=== PATIENT | male | born 1935 | race Caucasian/White ===

== ENCOUNTER 2020-03-13 17:19 | Emergency (ER) | payer MEDICARE, MEDICAID ==
[~2020-03-13] VITALS: Ht 177.8 cm; Wt 73.2 kg
[~2020-03-13 17:19] MED LIST: ALBU8.5H8 IH; CALC1TAB97 PO; DEC1T PO; ESCI10TA61 PO; HYDR25TA4 PO; LORA10TA7 PO; METF-950 PO; POTA8TAB3 PO; PROP10TA10 PO; RISP0.5T65 PO; RISP1TAB98 PO
[2020-03-13 18:12] LABS: BASOPHILS # (AUTO) 0.1 X10'3 (0-0.2); EOSINOPHILS % (AUTO) 0.2 % (0-6); HEMATOCRIT 37.7 % (42.0-52.0); HEMOGLOBIN 13.1 g/dl (14.0-17.9); LYMPHOCYTES # (AUTO) 0.8 X10'3 (1.1-4.8); LYMPHOCYTES % (AUTO) 8.4 % (21-51); MEAN CORPUSCULAR HEMOGLOBIN 32.7 PG (27.0-31.0); MEAN CORPUSCULAR HGB CONC 34.9 g/dL (33.0-36.5); MEAN CORPUSCULAR VOLUME 93.8 FL (78-98); MEAN PLATELET VOLUME 7.7 FL (7.4-10.4); MONOCYTES # (AUTO) 0.2 X10'3 (0-0.9); MONOCYTES % (AUTO) 2.3 % (2-12); NEUTROPHILS # (AUTO) 8.4 X10'3 (1.8-7.7); NEUTROPHILS % (AUTO) 88.1 % (42-75); PLATELET COUNT 266 X10'3 (140-440); RED BLOOD COUNT 4.01 X10'6 (4.70-6.10); RED CELL DISTRIBUTION WIDTH 16.9 % (11.5-14.5); WHITE BLOOD COUNT 9.5 X10'3 (4.5-11.0)
[2020-03-13 18:25] LABS: ALANINE AMINOTRANSFERASE 46 U/L (12-78); ALBUMIN 2.8 G/DL (3.4-5.0); ALBUMIN/GLOBULIN RATIO 0.8 (1.1-1.5); ALKALINE PHOSPHATASE 45 IU/L (46-116); ANION GAP 6 (8-16); ASPARTATE AMINO TRANSFERASE 14 U/L (10-37); BILIRUBIN,TOTAL 0.6 MG/DL (0.1-1.0); BLOOD UREA NITROGEN 22 MG/DL (7-18); BUN/CREATININE RATIO 20.6 (5.4-32.0); CALCIUM 9.3 MG/DL (8.5-10.1); CHLORIDE 98 MMOL/L (99-107); CREATININE 1.07 MG/DL (0.60-1.10); GLUCOSE 207 MG/DL (70-104); POTASSIUM 4.1 MMOL/L (3.5-5.1); SODIUM 134 MMOL/L (135-145); TOTAL CARBON DIOXIDE 30.4 MMOL/L (24-32); TOTAL PROTEIN 6.3 G/DL (6.4-8.2); eGFR 66 ML/MIN
--- NOTE | 2020-03-13 19:19 | NUR ---
TEOFILO FROM [employer] CALLED FOR UPDATE,
[2020-03-13 19:37] LABS: CLARITY,URINE CLEAR (Clear); COLOR,URINE YELLOW (Yellow); GLUCOSE, URINE NEGATIVE (Neg); KETONES,URINE NEGATIVE (Neg); LEUKOCYTE ESTERASE ,URINE TRACE (Neg); NITRITES, URINE NEGATIVE (Neg); OCCULT BLOOD,URINE NEGATIVE (Neg); PROTEIN,URINE NEGATIVE (Neg)
[2020-03-13 19:44] VITALS: BP 118/67
[2020-03-13 19:47] LABS: UA COLLECTION TYPE STRAIGHT CATH
[2020-03-13 19:48] LABS: BACTERIA,URINE NONE SEEN /HPF (Neg); RBC,URINE NONE SEEN /HPF (0-2); SQUAMOUS EPITHELIAL CELL,UR FEW /LPF (FEW); WBC,URINE 0-4 /HPF (0-4)
--- NOTE | 2020-03-13 20:26 | NUR ---
CONTACTED PT CAREGIVER WHO WILL COME AND PICK HIM UP.
== END 2020-03-14 01:09 | disposition home or self-care (01) ==
LOC: ER 17:19
DX: U07.1 COVID-19 (principal); R55 Syncope and collapse; I10 Essential (primary) hypertension; E11.9 Type 2 diabetes mellitus without complications; R62.50 Unspecified lack of expected normal physiological development in childhood
CPT/HCPCS: 36415; 71045; 80053; 81001; 83735; 83880; 84484; 85025; 87088; 93005; 99285

== ENCOUNTER 2020-05-15 18:53 | Emergency (ER) | payer MEDICARE, MEDICAID ==
[~2020-05-15] VITALS: Ht 172.7 cm; Wt 84.1 kg
[~2020-05-15 18:53] MED LIST changes: -DEC1T PO; -ESCI10TA61 PO; +ESCI10TA66 PO
[2020-05-15 19:25] LABS: MEAN CORPUSCULAR HEMOGLOBIN 33.3 PG (27.0-31.0)
[2020-05-15 19:26] LABS: BASOPHILS % (AUTO) 0.2 % (0-1); EOSINOPHILS # (AUTO) 0.3 X10'3 (0-0.9); EOSINOPHILS % (AUTO) 4.3 % (0-6); HEMATOCRIT 34.2 % (42.0-52.0); HEMOGLOBIN 11.9 g/dl (14.0-17.9); LYMPHOCYTES # (AUTO) 2.1 X10'3 (1.1-4.8); MEAN CORPUSCULAR HGB CONC 34.9 g/dL (33.0-36.5); MEAN CORPUSCULAR VOLUME 95.5 FL (78-98); MEAN PLATELET VOLUME 7.8 FL (7.4-10.4); MONOCYTES # (AUTO) 0.8 X10'3 (0-0.9); MONOCYTES % (AUTO) 10.9 % (2-12); NEUTROPHILS # (AUTO) 3.9 X10'3 (1.8-7.7); NEUTROPHILS % (AUTO) 54.6 % (42-75); PLATELET COUNT 197 X10'3 (140-440); RED BLOOD COUNT 3.58 X10'6 (4.70-6.10); RED CELL DISTRIBUTION WIDTH 17.2 % (11.5-14.5); WHITE BLOOD COUNT 7.1 X10'3 (4.5-11.0)
[2020-05-15 19:34] LABS: ALANINE AMINOTRANSFERASE 27 U/L (12-78); ALBUMIN 3.5 G/DL (3.4-5.0); ALBUMIN/GLOBULIN RATIO 1.2 (1.1-1.5); ALKALINE PHOSPHATASE 56 IU/L (46-116); ANION GAP 7 (8-16); ASPARTATE AMINO TRANSFERASE 18 U/L (10-37); BILIRUBIN,TOTAL 0.6 MG/DL (0.1-1.0); BLOOD UREA NITROGEN 18 MG/DL (7-18); BUN/CREATININE RATIO 19.8 (5.4-32.0); CALCIUM 9.1 MG/DL (8.5-10.1); CHLORIDE 100 MMOL/L (99-107); CREATININE 0.91 MG/DL (0.60-1.10); GLUCOSE 141 MG/DL (70-104); POTASSIUM 3.6 MMOL/L (3.5-5.1); SODIUM 137 MMOL/L (135-145); TOTAL CARBON DIOXIDE 30.5 MMOL/L (24-32); TOTAL PROTEIN 6.5 G/DL (6.4-8.2); eGFR 80 ML/MIN
[2020-05-15 19:39] LABS: TROPONIN I < 0.04 NG/ML (0.0-0.05)
--- NOTE | 2020-05-15 20:38 | NUR ---
gema lee [facility] [phone] cell call for transportation
[2020-05-15 20:55] LABS: CLARITY,URINE CLEAR (Clear); COLOR,URINE YELLOW (Yellow); GLUCOSE, URINE NEGATIVE (Neg); KETONES,URINE NEGATIVE (Neg); LEUKOCYTE ESTERASE ,URINE NEGATIVE (Neg); NITRITES, URINE NEGATIVE (Neg); OCCULT BLOOD,URINE NEGATIVE (Neg); PROTEIN,URINE NEGATIVE (Neg); UA COLLECTION TYPE STRAIGHT CATH; UROBILINOGEN,URINE 0.2 E.U/dL (0.2-1.0)
[2020-05-15 21:07] LABS: URINE AMPHETAMINE SCREEN NEGATIVE (Neg); URINE BARBITUATE SCREEN NEGATIVE (Neg); URINE BENZODIAZEPINES SCREEN POSITIVE (Neg); URINE CANNABINOID SCREEN NEGATIVE (Neg); URINE COCAINE SCREEN NEGATIVE (Neg); URINE METHADONE SCREEN NEGATIVE (Neg); URINE OPIATE SCREEN NEGATIVE (Neg); URINE PHENCYCLIDINE SCREEN NEGATIVE (Neg)
[2020-05-15 21:20] VITALS: BP 106/70
--- NOTE | 2020-05-15 21:38 | NUR ---
CALLED FOR TRANSPORTATION
--- NOTE | 2020-05-15 22:39 | NUR ---
called and left another message
== END 2020-05-15 23:11 | disposition home or self-care (01) ==
LOC: ER 18:53
DX: R53.81 Other malaise (principal); G31.9 Degenerative disease of nervous system, unspecified; R53.83 Other fatigue; I10 Essential (primary) hypertension; E11.9 Type 2 diabetes mellitus without complications; Z79.899 Other long term (current) drug therapy; F84.0 Autistic disorder; D64.9 Anemia, unspecified
CPT/HCPCS: 70450; 71045; 80053; 80305; 81003; 82140; 84484; 85025; 93005; 99285

== ENCOUNTER 2022-11-06 11:00 | Emergency (ER) | payer MEDICARE, MEDICAID ==
[~2022-11-06] VITALS: Ht 172.7 cm; Wt 81.8 kg
[~2022-11-06 11:00] MED LIST changes: +ALBU8.5H17 IH; -ALBU8.5H8 IH; +CALC-952 PO; -CALC1TAB97 PO; +ESCI-8 PO; -ESCI10TA66 PO; +METF-1203 PO; -METF-950 PO; -POTA8TAB3 PO; +POTA8TAB69 PO
[2022-11-06 11:11] VITALS: BP 110/64; PULSE 109; RESP 18; O2SAT 93
[2022-11-06] MEDS ORDERED: normal saline 1000ML IV soln IVB ONE (11:55)
[2022-11-06 12:32] LABS: BASOPHILS % (AUTO) 0.7 % (0-1); EOSINOPHILS # (AUTO) 0.2 X10'3 (0-0.9); EOSINOPHILS % (AUTO) 3.3 % (0-6); HEMATOCRIT 34.8 % (42.0-52.0); LYMPHOCYTES # (AUTO) 1.1 X10'3 (1.1-4.8); LYMPHOCYTES % (AUTO) 17.2 % (21-51); MEAN CORPUSCULAR HEMOGLOBIN 33.7 PG (27.0-31.0); MEAN CORPUSCULAR HGB CONC 34.5 g/dL (33.0-36.5); MEAN CORPUSCULAR VOLUME 97.5 FL (78-98); MEAN PLATELET VOLUME 8.5 FL (7.4-10.4); MONOCYTES # (AUTO) 0.5 X10'3 (0-0.9); MONOCYTES % (AUTO) 7.8 % (2-12); NEUTROPHILS # (AUTO) 4.4 X10'3 (1.8-7.7); PLATELET COUNT 156 X10'3 (140-440); RED BLOOD COUNT 3.58 X10'6 (4.70-6.10); RED CELL DISTRIBUTION WIDTH 16.9 % (11.5-14.5); WHITE BLOOD COUNT 6.2 X10'3 (4.5-11.0)
[2022-11-06 12:37] LABS: ALANINE AMINOTRANSFERASE 16 U/L (12-78); ALBUMIN 3.5 G/DL (3.4-5.0); ALBUMIN/GLOBULIN RATIO 1.3 (1.1-1.5); ALKALINE PHOSPHATASE 79 IU/L (46-116); ANION GAP 10 (8-16); ASPARTATE AMINO TRANSFERASE 18 U/L (10-37); BILIRUBIN,TOTAL 0.4 MG/DL (0.1-1.0); BLOOD UREA NITROGEN 14 MG/DL (7-18); BUN/CREATININE RATIO 13.7 (10.0-20.0); CALCIUM 8.9 MG/DL (8.5-10.1); CHLORIDE 103 MMOL/L (99-107); CREATININE 1.02 MG/DL (0.60-1.10); GLUCOSE 144 MG/DL (70-104); MAGNESIUM 2.1 MG/DL (1.5-2.4); SODIUM 137 MMOL/L (135-145); TOTAL CARBON DIOXIDE 24.4 MMOL/L (24-32); TOTAL PROTEIN 6.3 G/DL (6.4-8.2); eGFR 69 ML/MIN
[2022-11-06 12:38] LABS: POTASSIUM 4.2 MMOL/L (3.5-5.1)
[2022-11-06] MEDS ORDERED: CEPH-585 PO (12:55)
[2022-11-06] MEDS ORDERED: CefTRIAXone/D5W-Rocephin 1gm 50 ML IV ONE (12:55)
--- NOTE | 2022-11-06 13:04 | NUR ---
Per Dr. Pérez, anupam not to collect the urine sample as we would just treat patient empirically with IV Rocephin
== END 2022-11-06 13:47 | disposition home health service (06) ==
LOC: ER 11:01
DX: R53.1 Weakness (principal); I10 Essential (primary) hypertension; E11.9 Type 2 diabetes mellitus without complications; Z79.899 Other long term (current) drug therapy; Z79.2 Long term (current) use of antibiotics
CPT/HCPCS: 36415; 70450; 71045; 80053; 83735; 85025; 85610; 93005; 96365; 99285; J0696; J7030

== ENCOUNTER 2024-12-16 16:25 | Inpatient (IN) | payer MEDICARE, MEDICAID ==
[~2024-12-16] VITALS: Ht 182.9 cm; Wt 70.7 kg
[~2024-12-16 16:25] MED LIST changes: +RISP-31 PO; -RISP0.5T65 PO; +RISP0.5T80 PO; -RISP1TAB98 PO
--- NOTE | 2024-12-16 17:28 | Physician Documentation ---
History of Present Illness General Chief Complaint: Fever Stated Complaint: DIARRHEA/FEVER Time Seen by MD: 17:10 Primary Medical Doctor: MOISES BANDA History of Present Illness Initial Comments The patient is an 89-year-old man who resides at [facility] Living with a history of dementia and type 2 diabetes. Over the past two weeks he has generally deteriorated (less active) and beginning last night around midnight developed diarrhea. When they took his temperature prior to coming here it was 100. Medication Reconciliation Allergies: Coded Allergies: No Known Allergies (Unverified , 03/04/20) Scheduled Calcium Carbonate/Vitamin D3 (Calcium 600 + Vit D3 400 Tab), 1 TAB PO BID, (Reported) Escitalopram Oxalate (Escitalopram Oxalate), 1 TAB PO DAILY, (Reported) Hydrochlorothiazide (Hydrochlorothiazide), 1 TAB PO DAILY, (Reported) Loratadine (Loratadine), 1 TAB PO DAILY, (Reported) Metformin HCl (Metformin HCl), 1 TAB PO BIDBD, (Reported) Potassium Chloride (Klor-Con 8), 1 TAB PO DAILY, (Reported) Propranolol Hcl* (Inderal*), 1 TAB PO BID, (Reported) Risperidone (Risperidone), 1 TAB PO BID, (Reported) Risperidone (Risperidone), 1 TAB PO HS, (Reported) Scheduled PRN Albuterol Sulfate (Proair Hfa), 2 PUFF IH Q4H PRN for SOB or wheezing Past Medical History Past Medical History: Dementia, Hypertension, Diabetes, Schizophrenia Past Surgical History: noncontributory Drug Use: none Lives In: Assisted Care Occupation: disabled Review of Systems ROS Unable to obtain due to dementia. Physical Exam Physical Exam Vital Signs: Temperature: 101.7, Source: Axillary, Heart Rate: 105, Respiratory Rate: 18, BP: 126/56, Pulse Oximetry: 98, Weight: 70.700 Oxygen Flow Rate: 0 Physical Exam Physical Exam Vitals and nursing note reviewed. Constitutional: General: Patient is awake, somnolent but arousable oriented to person in no acute distress. Speech is clear and lucid. Appearance: Appears dehydrated. HENT: Head: Normocephalic and atraumatic. Mouth/Throat: Mouth: Mucous membranes are moist. Pharynx: Oropharynx is clear. Eyes: General: No scleral icterus. Extraocular Movements: Extraocular movements intact. Pupils: Pupils are equal, round, and reactive to light. Neck: Supple, no Kernig or Brudzinski sign. Cardiovascular: Rate and Rhythm: Normal rate and regular rhythm. Heart sounds: No murmur heard. Pulmonary: Effort: No respiratory distress. Breath sounds: No wheezing, rhonchi or rales. Abdominal: General: There is no distension. Palpations: There is no fluid wave, hepatomegaly or mass. Tenderness: There is no abdominal tenderness. There is no guarding. Musculoskeletal: General: No swelling or deformity. Progress Results/Orders Results/Orders Orders - PAPA MCWILLIAMS MD Hospitalist (12/16/24 18:37) Fill Out Med Reconciliation (12/16/24 18:37) Medications Received in ER Medications (Trade) Dose Ordered Sig/Sal Route PRN Reason Start Time Stop Time Status Last Admin Dose Admin (Tylenol tablet) 650 mg ONCE ONCE PO 12/16/24 16:50 12/16/24 16:51 DC 12/16/24 17:20 650 MG Sodium Chloride 1,000 ml @ 1,000 mls/hr ONCE ONCE IV 12/16/24 17:30 12/16/24 18:29 DC 12/16/24 19:36 1,000 MLS/HR Vital Signs 12/16/24 12/16/24 12/16/24 12/16/24 16:46 16:53 17:00 17:30 Temp 101.7 Pulse 105 106 98 Resp 18 16 B/P (MAP) 126/56 126/56 (79) 127/89 (102) Pulse Ox 98 97 96 O2 Flow Rate 0 0 0 12/16/24 19:07 Temp 99.9 Pulse 91 Resp 16 B/P (MAP) 114/51 (72) Pulse Ox 96 O2 Flow Rate 0 Laboratory Tests Test 12/16/24 17:45 12/16/24 17:58 White Blood Count 9.1 Red Blood Count 3.42 L Hemoglobin 11.4 L Hematocrit 32.4 L Mean Corpuscular Volume 95.0 Mean Corpuscular Hemoglobin 33.5 H Mean Corpuscular Hemoglobin Concent 35.3 Red Cell Distribution Width 18.5 H Platelet Count 218 Mean Platelet Volume 8.2 Neutrophils (%) (Auto) 83.0 H Lymphocytes (%) (Auto) 8.7 L Monocytes (%) (Auto) 7.6 Eosinophils (%) (Auto) 0.1 Basophils (%) (Auto) 0.6 Neutrophils # (Auto) 7.6 Lymphocytes # (Auto) 0.8 L Monocytes # (Auto) 0.7 Eosinophils # (Auto) 0.0 Basophils # (Auto) 0.1 CBC Comment Prothrombin Time 11.3 INR International Normalized Ratio 1.1 Coagulation Comments Sodium Level 137 Potassium Level 4.4 Chloride Level 101 Carbon Dioxide Level 27.5 Anion Gap 9 Blood Urea Nitrogen 20 H Creatinine 1.00 Estimated GFR/1.73 m2 71 BUN/Creatinine Ratio 20.0 Glucose Level 129 H Lactic Acid Level 1.1 Calcium Level 9.3 Magnesium Level 1.9 Total Bilirubin 1.2 H Aspartate Amino Transf (AST/SGOT) 20 Alanine Aminotransferase (ALT/SGPT) 29 Alkaline Phosphatase 111 Troponin I High Sensitivity 10 Total Protein 6.7 Albumin 3.7 Globulin 3.0 Albumin/Globulin Ratio 1.2 Chemistry Comments SARS-CoV-2 Antigen (Rapid) Positive A Medical Decision Making Findings Patient presents to the emergency room with fever and generalized weakness as per HPI. Differentials include but are not limited to viral syndrome, urinary tract infection, dehydration, acute kidney injury, electrolyte disturbances, metabolic encephalopathy therefore emergent labs ordered. Labs were reassuring however patient is COVID positive. Patient is not drinking any water in his generally declining health in the fact that has patient has multiple comorbid conditions and is immunocompromised a feel he would benefit from admission. IV fluids has been initiated. Departure Disposition: ADMITTED INPATIENT Admitted to Inpatient Unit: yes, to hospitalist Impression: Primary Impression: Pneumonia due to COVID-19 virus Condition: Guarded Referrals: NO PRIMARY CARE PROVIDER (PCP) Signature Scribe Signature: No scribe Attestation: The note accurately reflects work and decisions made by me.Papa Mcwilliams MD 12/16/24 18:36 MAMI CHAMBERS MD Dec 16, 2024 17:28 PAPA MCWILLIAMS MD Dec 16, 2024 18:36
--- NOTE | 2024-12-16 17:51 | ELECTROCARDIOGRAPH REPORT ---
[facility] Test Date: 2024-12-16 Test Time: 17:48:50 Pat Name: NAM BAEZ Department: [facility]-ER Patient ID: [facility]-[id number] Room: Gender: M Parking Worker: : 1935 Requested By: MAMI CHAMBERS Order Number: [id number] Reading MD: Measurements Intervals [place] Rate: 103 P: 61 ME: 186 QRS: -6 QRSD: 129 T: 110 QT: 370 QTc: 485 Interpretive Statements Sinus tachycardia Left bundle branch block Baseline wander in lead(s) V2 Please click the below link to view image of tracing.
[2024-12-16 18:06] LABS: MEAN PLATELET VOLUME 8.2 FL (7.4-10.4); RED CELL DISTRIBUTION WIDTH 18.5 % (11.5-14.5)
[2024-12-16 18:09] LABS: INR 1.1 INR
[2024-12-16 18:15] LABS: CREATININE 1.00 MG/DL (0.60-1.10); TOTAL CARBON DIOXIDE 27.5 MMOL/L (24-32); eCRCL 52 ML/MIN; eGFR 71 ML/MIN
--- NOTE | 2024-12-16 18:29 | RADIOLOGY REPORT ---
EXAM: DI CHEST,SINGLE VIEW HISTORY: Fever TECHNIQUE: 1 view of the chest COMPARISON: DI CHEST,SINGLE VIEW on DOS: 11/06/22 FINDINGS/IMPRESSION: LUNGS: No pleural effusion, consolidation, or pneumothorax MEDIASTINUM: Unremarkable BONES: No acute osseous abnormality OTHER: None
[2024-12-16] MEDS: normal saline 1000ml 1,000 ML IV ONE (19:36)
[2024-12-16] MEDS ORDERED: magnesium sulf-water 4G/100mL 100 ML IV PRN (19:40)
[2024-12-16] MEDS ORDERED: HYDROmorphone/PF 0.2 MG/ML SYRINGE IV PRN (19:40)
[2024-12-16] MEDS ORDERED: potassium Cl 40MEQ/1/2NS 520ml 520 ML IV PRN (19:40)
[2024-12-16] MEDS ORDERED: mag hydrox/Alum hydrox/simeth 30ml oral suspension PO PRN (19:40)
[2024-12-16] MEDS ORDERED: potassium Cl 20 mEq SR tablet PO PRN ×2 (19:40)
[2024-12-16] MEDS ORDERED: magnesium hydroxide 30ml (MOM) UD suspension PO PRN (19:40)
[2024-12-16] MEDS ORDERED: magnesium Cl slow-release 64mg tablet PO PRN (19:40)
[2024-12-16] MEDS ORDERED: ondansetron/PF 4mg/2ml inj IV PRN (19:40)
[2024-12-16] MEDS ORDERED: ondansetron 4mg rapidly disintigrating tab PO PRN (19:40)
[2024-12-16] MEDS ORDERED: magnesium sulf-water 2g/50mL 50 ML IV PRN (19:40)
[2024-12-16] MEDS: docusate sod 100mg capsule PO SCH (20:00)
[2024-12-16] MEDS: K and/or MAG REPLACEMENT MC SCH (20:00)
[2024-12-16] MEDS: heparin, porcine 5000 units/ml vial SQ SCH (20:00)
[2024-12-16] MEDS: normal saline 1000ml 1,000 ML IV SCH (20:20)
--- NOTE | 2024-12-16 20:47 | HISTORY AND PHYSICAL-Residence ---
History & Physical Providers to CC Resident Creating Document: ELPIDIO JUAREZ, RES ~ History of Present Illness Primary Medical Doctor: MOISES BANDA Reason for Admit\Complaint: fever History of Present Illness 89 years old male who resides at [facility] Living with history of dementia, T2 Diabetes mellius, Basal cell carcinoma of nose, Depression comes to ED with fever and diarrhea.Patient is a overall a poor historian he accompanied by her caregiver according to her Patient presented with continuous fever for the past 6 hours and recorded temp was 100, she did reported having intermittent waterry diarrhea for 12 hours not associated with no recent travel, and antibiotic use and he also presents with intermittent dry cough without sputum Patient is overall a poor historian and he denies nay chest pain, nausea, vomiting , dysuria, blood in the stools, and any sick contacts Patient recently undergone radiation therapy on october for his Basal cell carcinoma of nose Allergies: Coded Allergies: No Known Allergies (Unverified , 03/04/20) Home Medications Home Medications Active Proair Hfa (Albuterol Sulfate) 1 Puff Inh 2 Puff IH Q4H PRN Reported Klor-Con 8 (Potassium Chloride) 8 Meq Tablet.er 1 Tab PO DAILY 30 Days Calcium 600 + Vit D3 400 Tab (Calcium Carbonate/Vitamin D3) 1 Each Tablet 1 Tab PO BID Escitalopram Oxalate 10 Mg Tablet 1 Tab PO DAILY Loratadine 10 Mg Tablet 1 Tab PO DAILY Metformin HCl 500 Mg Tablet 1 Tab PO BIDBD Hydrochlorothiazide 25 Mg Tablet 1 Tab PO DAILY Risperidone 0.5 Mg Tablet 1 Tab PO HS Risperidone 1 Mg Tablet 1 Tab PO BID BID 08,14 Inderal* (Propranolol HCl) 10 Mg Tablet 1 Tab PO BID Past Medical History Past Medical History Diabetes mellius Basal cell carcinoma of skin Depression Schizophrenia Dementia Past Surgical History Surgical History Comment No relevant surgical history Past Social History Social History Comment Patient lives [facility] He ambulate using wheel chair His PCP : He is non alcohol drinker, non smoker, Not a drug user Drug Use: None Lives In: Assisted Care Occupation: disabled ROS Unable to obtain: dementia Exam Vitals: Vital Signs Date Time Temp Pulse Resp B/P (MAP) Pulse Ox O2 Delivery O2 Flow Rate FiO2 12/16/24 19:07 99.9 91 16 114/51 (72) 96 0 General: patient is ill looking, drowsy, dehydrated not answering questions HEENT: Normocephalic and atraumatic. Pupils equal round reactive to light and accommodation. Extraocular movements intact. Oral and nasal mucosa are dry . No visible head injuries, watering of eyes present Bilaterally Neck: Trachea is in midline. No masses or JVD Chest: Bilateral normal breath sounds. No crackles, rhonchi or wheezes Cardiovascular: Regular rate and regular rhythm. S1-S2 normal. No rubs or murmurs Abdomen: No tenderness present. Soft and nondistended. Normoactive bowel sounds Extremities: No cyanosis, clubbing or edema. Central Nervous System: normal tone and bulk Skin: Warm and dry Diagnostic Data Last Recorded Lab Results: 12/16/24 1745 12/16/24 1745 Diagnostic Data: Laboratory Tests Test 12/16/24 17:45 Prothrombin Time 11.3 SECONDS (9.0-12.0) INR International Normalized Ratio 1.1 INR Coagulation Comments Counseling Services Smoking & Tobacco Cessation: N/A Advance Care Planning Advanced Care planning: N/A Additional Plan 89 years old with history of dementia, Basal cell carcinoma S/P radiation therapy, diabetes mellitus, depression and schizophrenia he is currently evaluated for fever and diarrhea Fever due to COVID-19 patient lives in a [facility] presented with Fever and intermittent cough Temperature: 99.9 , pulse: 98, blood pressure: 114/51, pulse oxygen: 96 on room air H/H-11.4/32.4, WBC-9.1, platelet-218 Na: 137, K:4.4, BUN: 30, Cr: 1 CRP: 2.61, ProCal: <0.05 Serology SARS-CoV-2 Ag - Positive Chest X ray : : No pleural effusion, consolidation, or pneumothorax , MEDIASTINUM is Unremarkable Plan: Given One dose of 1000 ml NS Bolus and tylenol 650 mg in ED Started IV NS 75ml/hr Started Paxlovid Po BId Given One dose of Solu-medrol 125 mg IV once Start Oxygen if SpO2 drops below 90 Tylenol PRN for fever Follow up with U/A, ESR, Blood cultures Patient is placed on Isolation precautions with continous monitoring of vitals, oxygen Diarrhea patient healthcare receptionist reported having 4-5 episodes of watery diarrhea and he is dehydrated but no active diarrhea given one dose 1000 NS Bolous In ED started 75mg/hr IV NS Basal cell carcinoma of skin Patient has a history of basal cell carcinoma on the nose and undergone radiotheraphy on october 2024 according to his healthcare receptionist plan: Follow up with PCP Diabetes Mellitus type 2: patient has a long history diabetes and on Metformin 500mg His Blood glucose - 129, HbA1c: 5.2 Pending med rec Depression patient uses Escitalopram for depression according to his healthcare receptionist Plan: Start home med once med rec is completed Schizophrenia Patient has a history of hallucinations reported by his healthcare receptionist and he is on Risperidone Plan: start home med once med rec is completed DVT prophylaxis: Heparin Analgesia/sedation: Morphine/[place] p.r.n. Line/tube: PIV GI prophylaxis: Protonix PT: Ordered. Prognosis: Guarded Disposition : Patient will be continously monitored for vitals, Oxygen saturation and clinical status with symptomatic management elpidio juarez [email or web address] Date of Service: Dec 16, 2024 Billing Provider: SHILPA JACOME MD Common Visit Codes: [id number] INP/OBS CARE (HIGH) Assessment/Plan Assessment Evaluated the patient with the help of residents. Discussed the case with them. Reviewed the notes by the resident. Agree with his assessments and plans. I also reviewed the patient's records including labs radiology and notes from other providers. No additional points at this time. ELPIDIO JUAREZ, RES Dec 16, 2024 20:47 SHILPA JACOME MD Dec 17, 2024 01:35
[2024-12-16 22:05] VITALS: BP 104/60; PULSE 85; RESP 15; TEMP 100.5; O2SAT 97
[2024-12-16 23:00] VITALS: RESP 14; O2SAT 95
[2024-12-16] MEDS: NIRMATRELVIR/RITONAVIR 300/100mg - 1 EACH TAB.DS.PK PO SCH (23:08)
[2024-12-17 02:00] VITALS: BP 123/61; PULSE 78; RESP 20; TEMP 99.3; O2SAT 95
[2024-12-17 06:00] VITALS: BP 126/64; PULSE 75; RESP 22; TEMP 97.5; O2SAT 92
[2024-12-17 11:00] VITALS: BP 122/68; PULSE 57; RESP 15; TEMP 98; O2SAT 98
[2024-12-17 11:28] LABS: MEAN PLATELET VOLUME 8.5 FL (7.4-10.4); RED CELL DISTRIBUTION WIDTH 18.5 % (11.5-14.5)
[2024-12-17 11:46] LABS: CREATININE 0.82 MG/DL (0.60-1.10); TOTAL CARBON DIOXIDE 23.7 MMOL/L (24-32); eCRCL 63 ML/MIN; eGFR 89 ML/MIN
[2024-12-17 15:00] VITALS: BP 123/59; PULSE 60; RESP 14; TEMP 98.1; O2SAT 97
--- NOTE | 2024-12-17 19:47 | PROGRESS NOTE ---
Daily Progress Note Providers to CC ~ Antibiotic Timeout Antibiotic Ordered?: No Subjective Was seen in COVID isolation room today patient is unable to give me any history, signs of moderate to severe dementia present. Objective Vital Signs Date Time Temp Pulse Resp B/P (MAP) Pulse Ox O2 Delivery O2 Flow Rate FiO2 12/17/24 15:00 98.1 60 14 123/59 (80) 97 Room Air 12/16/24 19:07 0 Result Diagram: 12/17/24 1053 12/17/24 1053 General-patient not in any acute distress, awake chronically ill-appearing HEENT-atraumatic normocephalic, neck supple without elevated JVD, no thyromegaly or carotid bruit. No lymphadenopathy bilaterally. Eyes-no icterus or pallor seen in eyes Chest-decreased breath sounds to auscultation bilaterally over lung base. breathing nonlabored no tachypnea, no wheezing, no crepitation, no crackles. Heart-S1-S2 normal, regular heart rate no murmur Abdomen bowel sounds positive on auscultation, soft nondistended nontender no guarding, no rigidity Skin no active skin rash Neurology-patient has moderate dementia unable to cooperate or follow any verbal commands Extremity- no pedal edema Coagulation Studies Laboratory Tests Test 12/16/24 17:45 Prothrombin Time 11.3 SECONDS (9.0-12.0) INR International Normalized Ratio 1.1 INR Coagulation Comments Problem\Assessment\Plan 89 years old with history of dementia, Basal cell carcinoma S/P radiation therapy, diabetes mellitus, depression and schizophrenia he is currently evaluated for fever and diarrhea Fever due to COVID-19 patient lives in a [facility] facility presented with Fever and intermittent cough Temperature: 99.9 , pulse: 98, blood pressure: 114/51, pulse oxygen: 96 on room air H/H-11.4/32.4, WBC-9.1, platelet-218 Na: 137, K:4.4, BUN: 30, Cr: 1 CRP: 2.61, ProCal: <0.05 Serology SARS-CoV-2 Ag - Positive Chest X ray : : No pleural effusion, consolidation, or pneumothorax , MEDIASTINUM is Unremarkable Plan: Given One dose of 1000 ml NS Bolus and tylenol 650 mg in ED Started IV NS 75ml/hr Started Paxlovid Po BId Given One dose of Solu-medrol 125 mg IV once Start Oxygen if SpO2 drops below 90 Tylenol PRN for fever Follow up with U/A, ESR, Blood cultures Patient is placed on Isolation precautions with continous monitoring of vitals, oxygen Diarrhea patient child daycare worker reported having 4-5 episodes of watery diarrhea and he is dehydrated but no active diarrhea given one dose 1000 NS Bolous In ED started 75mg/hr IV NS Basal cell carcinoma of skin Patient has a history of basal cell carcinoma on the nose and undergone radiotheraphy on october 2024 according to his child daycare worker plan: Follow up with PCP Diabetes Mellitus type 2: patient has a long history diabetes and on Metformin 500mg His Blood glucose - 129, HbA1c: 5.2 On hypo and hyperglycemic protocol for diabetes Depression patient uses Escitalopram for depression according to his child daycare worker Plan: will Start home med once med rec is completed Schizophrenia Patient has a history of hallucinations reported by his child daycare worker and he is on Risperidone Home medication reconciliation tried but only able to review the medication unable to continue the medication in med rec. Pharmacy and nursing staff needs to work on medication reconciliation. DVT prophylaxis: Heparin Analgesia/sedation: Morphine/[place] p.r.n. Line/tube: PIV GI prophylaxis: Protonix PT: Ordered. Patient's current condition is guarded we will continue to follow patient in a.m. Date of Service: Dec 17, 2024 Billing Provider: GARY BROWNING MD Common Visit Codes: [id number] INP/OBS CARE(HIGH) GARY BROWNING MD Dec 17, 2024 19:47
[2024-12-17 20:00] VITALS: RESP 17; O2SAT 96
[2024-12-17 23:33] VITALS: BP 134/69; PULSE 60; TEMP 97.3; O2SAT 97
[2024-12-18] VITALS: RESP 17; O2SAT 96
[2024-12-18 04:37] LABS: MEAN PLATELET VOLUME 8.8 FL (7.4-10.4); RED CELL DISTRIBUTION WIDTH 18.7 % (11.5-14.5)
[2024-12-18 04:54] LABS: CREATININE 0.65 MG/DL (0.60-1.10); TOTAL CARBON DIOXIDE 27.6 MMOL/L (24-32); eCRCL 80 ML/MIN; eGFR > 90 ML/MIN
[2024-12-18 06:00] VITALS: BP 138/76; PULSE 88; RESP 14; TEMP 98.3; O2SAT 93
[2024-12-18 10:00] VITALS: BP 125/62; PULSE 65; RESP 16; TEMP 98.1; O2SAT 95
[2024-12-18] MEDS ORDERED: ALBU90AE INH (10:58)
[2024-12-18] MEDS: lactose-reduced food (Ensure Enlive) - 237ml bottle PO SCH ×2 (18:01→19:50)
[2024-12-18 20:00] VITALS: RESP 20; O2SAT 96
--- NOTE | 2024-12-18 20:13 | PROGRESS NOTE ---
Daily Progress Note Providers to CC ~ Antibiotic Timeout Antibiotic Ordered?: No Subjective Patient was seen in COVID isolation room he looks so much better as compared to yesterday cooperated very well responded well to verbal commands. As per patient he has a feeder does not walk. Nursing staff feels that patient's appetite is poor ensure added today and fall and aspiration precautions to continue Objective Vital Signs Date Time Temp Pulse Resp B/P (MAP) Pulse Ox O2 Delivery O2 Flow Rate FiO2 12/18/24 10:00 98.1 65 16 125/62 (83) 95 Room Air 12/18/24 00:00 0.0 Result Diagram: 12/18/2441612/18/24416 General-patient not in any acute distress, awake chronically ill-appearing HEENT-atraumatic normocephalic, neck supple without elevated JVD, no thyromegaly or carotid bruit. No lymphadenopathy bilaterally. Eyes-no icterus or pallor seen in eyes Chest-clear breath sounds to auscultation bilaterally , breathing nonlabored no tachypnea, no wheezing, no crepitation, no crackles. Heart-S1-S2 normal, regular heart rate no murmur Abdomen bowel sounds positive on auscultation, soft nondistended nontender no guarding, no rigidity Skin no active skin rash Neurology-patient has moderate dementia , today able to cooperate and follow verbal commands Extremity- no pedal edema , able to move all four extremity Coagulation Studies Laboratory Tests Test 12/16/24 17:45 Prothrombin Time 11.3 SECONDS (9.0-12.0) INR International Normalized Ratio 1.1 INR Coagulation Comments Problem\Assessment\Plan 89 years old with history of dementia, Basal cell carcinoma S/P radiation therapy, diabetes mellitus, depression and schizophrenia he is currently evaluated for fever and diarrhea Fever due to COVID-19 patient lives in a [facility] presented with Fever and intermittent cough Temperature: 99.9 , pulse: 98, blood pressure: 114/51, pulse oxygen: 96 on room air H/H-11.4/32.4, WBC-9.1, platelet-218 Na: 137, K:4.4, BUN: 30, Cr: 1 CRP: 2.61, ProCal: <0.05 Serology SARS-CoV-2 Ag - Positive Chest X ray : : No pleural effusion, consolidation, or pneumothorax , MEDIASTINUM is Unremarkable Plan: Given One dose of 1000 ml NS Bolus and tylenol 650 mg in ED on IV NS 75ml/hr on Paxlovid Po BId, we will monitor renal function Given One dose of Solu-medrol 125 mg IV once Start Oxygen if SpO2 drops below 90 Tylenol PRN for fever Follow up with U/A, ESR, Blood cultures Patient is placed on Isolation precautions with continous monitoring of vitals, oxygen Diarrhea patient patient care coordinator reported having 4-5 episodes of watery diarrhea and he is dehydrated but no active diarrhea given one dose 1000 NS Bolous In ED started 75mg/hr IV NS Basal cell carcinoma of skin Patient has a history of basal cell carcinoma on the nose and undergone radiotheraphy on october 2024 according to his patient care coordinator plan: Follow up with PCP Diabetes Mellitus type 2: patient has a long history diabetes and on Metformin 500mg His Blood glucose - 129, HbA1c: 5.2 On hypo and hyperglycemic protocol for diabetes Depression patient uses Escitalopram for depression according to his patient care coordinator Plan: home med rec is completed Schizophrenia Patient has a history of hallucinations reported by his patient care coordinator and he is on Risperidone Home medication reconciliation tried but only able to review the medication unable to continue the medication in med rec. Pharmacy and nursing staff needs to work on medication reconciliation. DVT prophylaxis: Heparin Analgesia/sedation: Morphine/[place] p.r.n. Line/tube: PIV GI prophylaxis: Protonix PT: Ordered. Patient's current condition is guarded we will continue to follow patient in a.m. Date of Service: Dec 18, 2024 Billing Provider: GARY BROWNING MD Common Visit Codes: [id number] INP/OBS CARE(HIGH) GARY BROWNING MD Dec 18, 2024 20:13
[2024-12-18 22:00] VITALS: BP 123/62; PULSE 60; RESP 14; TEMP 98.5; O2SAT 98
[2024-12-19 04:57] LABS: MEAN PLATELET VOLUME 8.5 FL (7.4-10.4); RED CELL DISTRIBUTION WIDTH 18.7 % (11.5-14.5)
[2024-12-19 05:19] LABS: CREATININE 0.70 MG/DL (0.60-1.10); TOTAL CARBON DIOXIDE 28.4 MMOL/L (24-32); eCRCL 74 ML/MIN; eGFR > 90 ML/MIN
[2024-12-19 06:00] VITALS: BP 135/66; PULSE 68; RESP 14; TEMP 98; O2SAT 93
[2024-12-19 08:36] VITALS: RESP 14; O2SAT 93
[2024-12-19] MEDS: pantoprazole 40mg Tablet.DR PO SCH (08:36)
[2024-12-19 10:00] VITALS: BP 126/62; PULSE 71; RESP 16; TEMP 98; O2SAT 94
[2024-12-19 18:00] VITALS: BP 136/59; PULSE 68; RESP 20; TEMP 97.7; O2SAT 95
[2024-12-19 20:00] VITALS: RESP 20; O2SAT 95
--- NOTE | 2024-12-19 20:09 | PROGRESS NOTE ---
Daily Progress Note Providers to CC ~ Antibiotic Timeout Antibiotic Ordered?: No Subjective Patient was seen in his room looked comfortable cooperated very well during exam. Looking much better Objective Vital Signs Date Time Temp Pulse Resp B/P (MAP) Pulse Ox O2 Delivery O2 Flow Rate FiO2 12/19/24 10:00 98.0 71 16 126/62 (83) 94 Room Air 12/18/24 00:00 0.0 Result Diagram: 12/19/2443512/19/24 0436 General-patient not in any acute distress, awake chronically ill-appearing HEENT-atraumatic normocephalic, neck supple without elevated JVD, no thyromegaly or carotid bruit. No lymphadenopathy bilaterally. Eyes-no icterus or pallor seen in eyes Chest-clear breath sounds to auscultation bilaterally , breathing nonlabored no tachypnea, no wheezing, no crepitation, no crackles. Heart-S1-S2 normal, regular heart rate no murmur Abdomen bowel sounds positive on auscultation, soft nondistended nontender no guarding, no rigidity Skin no active skin rash Neurology-patient has moderate dementia , today able to cooperate and follow verbal commands Extremity- no pedal edema , able to move all four extremity Coagulation Studies Laboratory Tests Test 12/16/24 17:45 Prothrombin Time 11.3 SECONDS (9.0-12.0) INR International Normalized Ratio 1.1 INR Coagulation Comments Problem\Assessment\Plan 89 years old with history of dementia, Basal cell carcinoma S/P radiation therapy, diabetes mellitus, depression and schizophrenia he is currently evaluated for fever and diarrhea Fever due to COVID-19 patient lives in a [facility] facility presented with Fever and intermittent cough Temperature: 99.9 , pulse: 98, blood pressure: 114/51, pulse oxygen: 96 on room air H/H-11.4/32.4, WBC-9.1, platelet-218 Na: 137, K:4.4, BUN: 30, Cr: 1 CRP: 2.61, ProCal: <0.05 Serology SARS-CoV-2 Ag - Positive Chest X ray : : No pleural effusion, consolidation, or pneumothorax , MEDIASTINUM is Unremarkable Plan: Given One dose of 1000 ml NS Bolus and tylenol 650 mg in ED on IV NS 75ml/hr on Paxlovid Po BId, we will monitor renal function Given One dose of Solu-medrol 125 mg IV once Start Oxygen if SpO2 drops below 90 Tylenol PRN for fever Follow up with U/A, ESR, Blood cultures Patient is placed on Isolation precautions with continous monitoring of vitals, oxygen Diarrhea patient hospice care transitions coordinator reported having 4-5 episodes of watery diarrhea and he is dehydrated but no active diarrhea given one dose 1000 NS Bolous In ED started 75mg/hr IV NS Basal cell carcinoma of skin Patient has a history of basal cell carcinoma on the nose and undergone radiotheraphy on october 2024 according to his hospice care transitions coordinator plan: Follow up with PCP Diabetes Mellitus type 2: patient has a long history diabetes and on Metformin 500mg His Blood glucose - 129, HbA1c: 5.2 On hypo and hyperglycemic protocol for diabetes Depression patient uses Escitalopram for depression according to his hospice care transitions coordinator Plan: home med rec is completed Schizophrenia Patient has a history of hallucinations reported by his hospice care transitions coordinator and he is on Risperidone Home medication reconciliation tried but only able to review the medication unable to continue the medication in med rec. Pharmacy and nursing staff needs to work on medication reconciliation. DVT prophylaxis: Heparin Analgesia/sedation: Morphine/Lewis p.r.n. Line/tube: PIV GI prophylaxis: Protonix PT: Ordered. Patient's current condition is guarded we will continue to follow patient in a.m. Date of Service: Dec 19, 2024 Billing Provider: GARY BROWNING MD Common Visit Codes: [id number] INP/OBS CARE(HIGH) GARY BROWNING MD Dec 19, 2024 20:08
[2024-12-20] VITALS: BP 93/51; PULSE 59; RESP 20; TEMP 97.7; O2SAT 100
[2024-12-20 06:30] LABS: MEAN PLATELET VOLUME 8.4 FL (7.4-10.4); RED CELL DISTRIBUTION WIDTH 18.6 % (11.5-14.5)
[2024-12-20 06:58] LABS: CREATININE 0.77 MG/DL (0.60-1.10); TOTAL CARBON DIOXIDE 26.2 MMOL/L (24-32); eCRCL 68 ML/MIN; eGFR > 90 ML/MIN
[2024-12-20] MEDS ORDERED: HYDR25TA4 PO (09:35)
[2024-12-20] MEDS ORDERED: NIRM1TAB13 PO (09:35)
[2024-12-20 10:00] VITALS: BP 145/60; PULSE 89; RESP 16; TEMP 97.9; O2SAT 100
--- NOTE | 2024-12-20 16:52 | DISCHARGE SUMMARY ---
Discharge Summary Providers to CC ~ Discharge Summary Admission Diagnosis: Covid 19 Hospital Course DATE OF ADMISSION: December 16, 2024 DATE OF DISCHARGE:December 20, 2024 CBC testing done on December 20, 2024 WBC 5.5 hemoglobin 10.3 hematocrit 29.8 platelet count 202, sed rate 23, procalcitonin 0.05 serum chemistry done on December 20, 2024 sodium 140 potassium 4.0 creatinine 0.77, GFR greater than 90, hemoglobin A1c 5.2, normal liver enzymes, blood culture showed no growth after five days CHEST,SINGLE VIEWFINDINGS/IMPRESSION: LUNGS: No pleural effusion, consolidation, or pneumothorax MEDIASTINUM: Unremarkable BONES: No acute osseous abnormality OTHER: None Discharge Diagnosis\Comment: Fever due to COVID-19, Diarrhea Basal cell carcinoma of skin, history of diabetes patient currently not in diabetic range, Depression Schizophrenia Operations\Procedures: None Consultants: None Complications: None Condition on DC: Stable New Medications: Nirmatrelvir/Ritonavir (Paxlovid 300-100 mg Dose Pack) 300 Mg (150 Mg X 2)-100 M g Tab.ds.pk 1 EACH PO BID for 2 Days, #4 TAB Changed Medications: Hydrochlorothiazide (Hydrochlorothiazide) 25 Mg Tablet 0.5 TAB PO DAILY for 30 Days, #15 TAB (Changed from: 1 TAB) Continued Medications: Albuterol Sulfate (Proair Hfa) 1 Puff Inh 2 PUFF IH Q4H PRN for SOB or wheezing, #1 INHALER Calcium Carbonate/Vitamin D3 (Calcium 600 + Vit D3 400 Tab) 1 Each Tablet 1 TAB PO BID Escitalopram Oxalate (Escitalopram Oxalate) 10 Mg Tablet 1 TAB PO DAILY Potassium Chloride (Klor-Con 8) 8 Meq Tablet.er 1 TAB PO DAILY for 30 Days, #30 TAB 0 Refills Propranolol Hcl* (Inderal*) 10 Mg Tablet 1 TAB PO BID Risperidone (Risperidone) 1 Mg Tablet 1 TAB PO BID BID Discontinued Medications: Loratadine (Loratadine) 10 Mg Tablet 1 TAB PO DAILY Metformin HCl (Metformin HCl) 500 Mg Tablet 1 TAB PO BIDBD Risperidone (Risperidone) 0.5 Mg Tablet 1 TAB PO HS Discharge Summary: 89 years old with history of dementia, Basal cell carcinoma S/P radiation therapy, diabetes mellitus, depression and schizophrenia he is currently evaluated for fever and diarrhea During hospitalization patient was treated for Fever due to COVID-19 patient lives in a at [facility] facility presented with Fever and intermittent cough Temperature: 99.9 , pulse: 98, blood pressure: 114/51, pulse oxygen: 96 on room air H/H-11.4/32.4, WBC-9.1, platelet-218 Na: 137, K:4.4, BUN: 30, Cr: 1 CRP: 2.61, ProCal: <0.05 Serology SARS-CoV-2 Ag - Positive Chest X ray : : No pleural effusion, consolidation, or pneumothorax , MEDIASTINUM is Unremarkable Plan: Given One dose of 1000 ml NS Bolus and tylenol 650 mg in ED on IV NS 75ml/hr on Paxlovid Po BId, we will monitor renal function Given One dose of Solu-medrol 125 mg IV once Start Oxygen if SpO2 drops below 90 Tylenol PRN for fever Follow up with U/A, ESR, Blood cultures Patient is placed on Isolation precautions with continous monitoring of vitals, oxygen Diarrhea patient post acute care nurse practitioner reported having 4-5 episodes of watery diarrhea and he is dehydrated but no active diarrhea given one dose 1000 NS Bolous In ED started 75mg/hr IV NS Basal cell carcinoma of skin Patient has a history of basal cell carcinoma on the nose and undergone radiotheraphy on october 2024 according to his post acute care nurse practitioner plan: Follow up with PCP Diabetes Mellitus type 2: patient has history diabetes and on Metformin 500mg His Blood glucose - 129, HbA1c: 5.2 On hypo and hyperglycemic protocol for diabetes Depression patient uses Escitalopram for depression according to his post acute care nurse practitioner Plan: home med rec is completed Schizophrenia Patient has a history of hallucinations reported by his post acute care nurse practitioner and he is on Risperidone Patient is feeling better he has been afebrile and getting discharged home in stable condition. Patient is seen and examined on the day of discharge. accounts payable manager Marisol involved in patient's discharge plan. Discharge instructions provided to the patient. PLEASE FOLLOW-UP WITH PRIMARY CARE PHYSICIAN IN OUTPATIENT SETTING. CONTINUE COVID ISOLATION TILL 2024. Patient's hemoglobin A1c is 5.2 does not need metformin at this point of time and not in diabetic range. General-patient not in any acute distress, awake chronically ill-appearing HEENT-atraumatic normocephalic, neck supple without elevated JVD, no thyromegaly or carotid bruit. No lymphadenopathy bilaterally. Eyes-no icterus or pallor seen in eyes Chest-clear breath sounds to auscultation bilaterally , breathing nonlabored no tachypnea, no wheezing, no crepitation, no crackles. Heart-S1-S2 normal, regular heart rate no murmur Abdomen bowel sounds positive on auscultation, soft nondistended nontender no guarding, no rigidity Skin no active skin rash Neurology-patient has moderate dementia , able to cooperate and follow verbal commands Extremity- no pedal edema , able to move all four extremity *Problems/Diagnosis: (1) Lab test positive for detection of COVID-19 virus Status: Acute Total Time Spent on D/C: > 30 Minutes Date of Service: Dec 20, 2024 Billing Provider: GARY BROWNING MD Common Visit Codes: [id number]/OBS DAY >30min GARY BROWNING MD Dec 20, 2024 16:48
== END 2024-12-20 12:55 | disposition home or self-care (01) | DRG 178 ==
LOC: ER 16:26 → ED HOLD 19:35 → PCU 3S 21:50 → SUR 3N 12-17 23:15
PROVIDERS: ADMIT Internal Medicine Critical Care Medicine; ATTEND Internal Medicine
DX: U07.1 COVID-19 (principal); F03.93 Unspecified dementia, unspecified severity, with mood disturbance; R19.7 Diarrhea, unspecified; E86.0 Dehydration; C44.91 Basal cell carcinoma of skin, unspecified; I10 Essential (primary) hypertension; F20.9 Schizophrenia, unspecified; Z79.899 Other long term (current) drug therapy; Z92.3 Personal history of irradiation; Z78.9 Other specified health status
CPT/HCPCS: 36415; 71045; 80053; 83036; 83605; 83735; 84145; 84443; 84484; 85025; 85610; 85651; 86140; 87040; 87081; 87811; 93005; 96372; 97161; 97530; 99285; A6213; A6250; A6258; A6446; A6449; A6590; C1758; G0378; J1644; J2470; J2919; J7030